=== PATIENT | male | born 1965 | race Caucasian/White ===

== ENCOUNTER 2018-05-26 08:26 | Emergency (ER) | payer OTHER ==
[~2018-05-26] VITALS: Ht 185.4 cm; Wt 122.5 kg
[2018-05-26] MEDS ORDERED: HYDROCHLOROTHIA25 M2 PO (08:55)
[2018-05-26] MEDS ORDERED: SYNTHROID100 MC1 PO (08:55)
[2018-05-26] MEDS ORDERED: SYNTHROID200 MCG PO (08:55)
[2018-05-26] MEDS ORDERED: ZOCOR20 MG PO (08:55)
[2018-05-26] MEDS ORDERED: SEROPHENE50 MG PO (08:55)
[2018-05-26] MEDS ORDERED: GLEEVEC400 MG PO (08:55)
[2018-05-26] MEDS ORDERED: NEXIUM40 MG PO (08:55)
[2018-05-26] MEDS ORDERED: ASPIRIN325 PO (08:56)
[2018-05-26] MEDS ORDERED: PROPECIA1 MG PO (08:56)
[2018-05-26] MEDS ORDERED: FISH OIL + D31 EACH PO (08:56)
[2018-05-26] MEDS ORDERED: CELEXA20 MG PO (08:56)
[2018-05-26] MEDS ORDERED: VITAMIN D3400 UNIT PO (08:56)
[2018-05-26] MEDS ORDERED: CIALIS20 MG PO (08:57)
[2018-05-26 09:02] LABS: ABSOLUTE NEUTROPHILS 1.9 thou/uL (1.4-8.2); HEMATOCRIT 41.7 % (42.0-52.0); LYMPHOCYTES 37.1 % (24.0-44.0); MCH 31.9 pg (26.0-34.0); MCHC 33.5 g/dL (28.0-37.0); MCV 95.3 fL (80.0-100.0); MONOCYTES 10.3 % (1.0-8.0); PLATELET COUNT 171 thou/uL (150-400); POLYS 50.6 % (36.0-66.0); RBC 4.38 mil/uL (4.50-6.00); RDW 15.2 % (10.5-14.5); WBC 3.9 thou/uL (4.0-11.0)
[2018-05-26 09:06] LABS: ANION GAP 9 mmol/L (7-16); BUN 16 mg/dL (7-18); CHLORIDE 102 mmol/L (98-107); CO2 30 mmol/L (21-32); CREATININE 1.4 mg/dL (0.7-1.3); GLUCOSE 110 mg/dL (74-106); SODIUM 141 mmol/L (136-145)
--- NOTE | 2018-05-26 09:14 | EKG ---
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 : 1965 Requested By: Brian Villalobos Order Number: [id number] MD: Antonio Gomez Measurements Intervals [place] Rate: 47 P: 16 PA: 185 QRS: 8 QRSD: 105 T: 42 QT: 514 QTc: 455 Interpretive Statements Sinus bradycardia Otherwise normal tracing No previous ECG available for comparison Electronically Signed On 05-26-2018 9:14:15 CDT by Antonio Gomez [email or web address] ��������������������������������������������� <ELECTRONICALLY SIGNED> ���������������������������������������� By: Antonio Gomez MD, [facility] ��������������������������������������������� 05/26/18 0914 0850 0850 Antonio Gomez MD, FACC /EPI
[2018-05-26 09:15] LABS: TROPONIN-I <0.06 ng/mL (<0.06)
[2018-05-26 10:32] VITALS: BP 118/64
== END 2018-05-26 10:33 | disposition home or self-care (01) ==
LOC: ER 08:26
PROVIDERS: Emergency Medicine
DX: E87.6 Hypokalemia (principal); R42 Dizziness and giddiness; R00.1 Bradycardia, unspecified; Z88.1 Allergy status to other antibiotic agents; Z88.2 Allergy status to sulfonamides

== ENCOUNTER 2018-06-30 08:46 | Inpatient (IN) | payer OTHER ==
[~2018-06-30] VITALS: Ht 182.9 cm; Wt 136.1 kg
[~2018-06-30 08:46] MED LIST: ASPIRIN325 PO; CELEXA20 MG PO; CIALIS20 MG PO; FISH OIL + D31 EACH PO; GLEEVEC400 MG PO; HYDROCHLOROTHIA25 M2 PO; NEXIUM40 MG PO; PROPECIA1 MG PO; SEROPHENE50 MG PO; SYNTHROID100 MC1 PO; SYNTHROID200 MCG PO; VITAMIN D3400 UNIT PO; ZOCOR20 MG PO
[2018-06-30 09:58] VITALS: BP 110/69
--- NOTE | 2018-06-30 14:06 | 2DMMODE ---
[facility] [address] [place] [address] 2 D/M-MODE ECHOCARDIOGRAM Name: SIVA CHERY Room #: 205-P ADM IN M.R.#: [id number] ������������� Admission: 06/30/18 ������������� Attend Phys: Eleuterio George, Discharge: ��� ������������� ��� Date of : 69 Date of Service: 06/30/18 1405 �� Report #: [id number] �������� ��������������������������������������������[id number] THIS REPORT FOR: //name// APPROVED REPORT Study performed: 06/30/2018 12:43:16 EXAM: Comprehensive 2D, Doppler, and color-flow Echocardiogram Patient Location: Echo lab Room #: 205 Status: routine BSA: 2.53 HR: 54 bpm BP: 110/69 mmHg Rhythm: NSR Other Information Study Quality: Adequate Indications Bradycardia Near syncope 2D Dimensions RVDd: 43.63 mm IVSd: 11.15 (7-11mm) LVOT Diam: 23.98 (18-24mm) LVDd: 55.08 mm PWd: 10.44 (7-11mm) Ascending Ao: 36.28 (22-36mm) LVDs: 38.63 (25-40mm) Aortic Root: 40.99 mm Volumes Left Atrial Volume (Systole) Single Plane 4CH: 70.26 mL Single Plane 2CH: 63.02 mL LA ESV Index: 28.00 mL/m2 Aortic Valve AoV Peak Paulino.: 1.70 m/s AO Peak Gr.: 11.62 mmHg LVOT Max P.24 mmHg LVOT Max V: 1.35 m/s VIKA Vmax: 3.56 cm2 Mitral Valve E/A Ratio: 1.3 MV Decel. Time: 236.89 ms [facility] [address] [place] [address] 2 D/M-MODE ECHOCARDIOGRAM Name: SIVA CHERY Room #: 205-P [facility] IN [facility].#: [id number] ������������� Admission: 06/30/18 ������������� Attend Phys: Eleuterio George, Discharge: ��� ������������� ��� Date of : 69 Date of Service: 06/30/18 1405 �� Report #: [id number] �������� ��������������������������������������������[id number] MV E Max Paulino.: 0.82 m/s MV A Paulino.: 0.61 m/s MV PHT: 68.70 ms IVRT: 73.82 ms Pulmonary Valve PV Peak Paulino.: 1.19 m/s PV Peak Gr.: 5.63 mmHg Pulmonary Vein P Vein S: 0.52 m/s P Vein D: 0.42 m/s P Vein S/D Ratio: 1.24 Tricuspid Valve TR Peak Paulino.: 2.43 m/s RAP Estimate: 5.00 mmHg TR Peak Gr.: 23.70 mmHg PA Pressure: 29.00 mmHg Left Ventricle The left ventricle is normal size. There is normal LV segmental wall motion. There is normal left ventricular wall thickness. Left ventricular systolic function is normal. LVEF is 55-60%. Right Ventricle The right ventricle is normal size. The right ventricular systolic function is normal. Atria The left atrium size is normal. The right atrium size is normal. Aortic Valve The aortic valve is normal in structure. No aortic regurgitation is present. There is no aortic valvular stenosis. Mitral Valve The mitral valve is normal in structure. Mild mitral regurgitation. No evidence of mitral valve stenosis. Tricuspid Valve The tricuspid valve is normal in structure. Trace to mild tricuspid regurgitation. Estimated PAP is 30mmHg. Pulmonic Valve The pulmonary valve is normal in structure. Trace pulmonic regurgitation. [facility] [address] [place] [address] 2 D/M-MODE ECHOCARDIOGRAM Name: SIVA CHERY Room #: 205-P ADM IN M.R.#: [id number] ������������� Admission: 06/30/18 ������������� Attend Phys: Eleuterio George, Discharge: ��� ������������� ��� Date of : [birth year] Date of Service: 06/30/18 1405 �� Report #: [id number] �������� ��������������������������������������������[id number] [place] Aortic root is mildly dilated at 4.0cm. The ascending aorta is normal in size. IVC is normal in size and collapses >50% with inspiration. Pericardium There is no pericardial effusion. <Conclusion> The left ventricle is normal size. There is normal left ventricular wall thickness. Left ventricular systolic function is normal. The right ventricle is normal size. The left atrium size is normal. The right atrium size is normal. The aortic valve is normal in structure. Mild mitral regurgitation. Trace to mild tricuspid regurgitation. Estimated PAP is 30mmHg. ��������������������������������������������� <ELECTRONICALLY SIGNED> ���������������������������������������� By: Trip Aaron MD ��������������������������������������������� 06/30/18 1405 04 140 Trip Aaron MD /INF
--- NOTE | 2018-06-30 14:18 | EXE ---
[facility] [address] [place] [address] STRESS ECHOCARDIOGRAM Name: SIVA CHERY Room #: 205-P ADM IN M.R.#: [id number] ������������� Admission: 06/30/18 ������������� Attend Phys: Eleuterio George, Discharge: ��� ������������� ��� Date of : 69 Date of Service: 06/30/18 1417 �� Report #: [id number] �������� ��������������������������������������������[id number] THIS REPORT FOR: //name// APPROVED REPORT Study performed: 06/30/2018 13:13:10 Exam: Stress Echocardiogram Indication: Near syncope, bradycardia Patient Location: Echo lab Stress Nurse: Marley Huff RN Room #: 205 Status: routine Ht: 6 ft 0 in HR: 57 bpm BP: 110/69 mmHg Rhythm: Sinus Medical History Allergies: Listed on worksheet Cardiac Risk Factors: FHX of CAD, obesity Procedure The patient underwent an Exercise Stress Test using the Modified Myron Protocol. Blood pressure, heart rate, and EKG were monitored. An Echocardiogram was performed by roadway technician in four stages in quad fashion. At peak stress, four selected images were obtained and placed side by side with resting images for comparison. Stress Test Details Stress Test: Exercise stress testing was performed using a modified Myron protocol. HR Resting HR: 62 bpm Max Heart Rate (APMHR): 169 bpm Max HR Achieved: 131 bpm Target HR (85% APMHR): 143 bpm % of APMHR: 77 Recovery HR: 77 bpm HR response to stress: Normal HR response to stress BP Resting BP: 110/69 mmHg Max BP: 160/75 mmHg Recovery BP: 124/70 mmHg BP response to stress: Normal blood pressure response to [facility] [address] [place] [address] STRESS ECHOCARDIOGRAM Name: SIVA CHERY Room #: 205-P [facility] IN ..#: [id number] ������������� Admission: 06/30/18 ������������� Attend Phys: Eleuterio George, Discharge: ��� ������������� ��� Date of : 69 Date of Service: 06/30/18 1417 �� Report #: [id number] �������� ��������������������������������������������[id number] stress. ECG Resting ECG: Sinus Rhythm Stress ECG: Sinus Rhythm ST Change: Non-ischemic Clinical Reason for Termination: Leg fatigue/Dyspnea Exercise duration: 7 min sec Highest Stage Achieved: Stage 2: 2.5 mph at 12% grade. Exercise capacity: 7.6 METs Held stage 2 incline till patient requested to stop. Pre-Stress Echo The resting Echocardiogram showed normal left ventricular contractility with an estimated Ejection Fraction of about 55-60%. Normal wall motion in all segments on baseline images. Post-Stress Echo The stress Echocardiogram showed normal left ventricular contractility with an estimated Ejection Fraction of about >70%. Normal augmentation of wall motion in all segments on post stress images. Clinical No clinical or ECG evidence for ischemia. Conclusion Clinical Response: Non-ischemic Exercise Capacity: Below Average Stress ECG Response: Non-ischemic Stress Echo Images: Non-ischemic This is a suboptimal study as the target heart rate was not able to be achieved. Normal chronotropic competence with exercise. Other Information Study Quality: Adequate <Conclusion> This is a suboptimal study as the target heart rate was not able to [facility] [address] [place] [address] STRESS ECHOCARDIOGRAM Name: SIVA CHERY Room #: 205-P [facility] IN M.R.#: [id number] ������������� Admission: 06/30/18 ������������� Attend Phys: Eleuterio George, Discharge: ��� ������������� ��� Date of : 69 Date of Service: 06/30/181416 �� Report #: [id number] �������� ��������������������������������������������[id number] be achieved. Normal chronotropic competence with exercise. ��������������������������������������������� <ELECTRONICALLY SIGNED> ���������������������������������������� By: Trip Aaron MD ��������������������������������������������� 06/30/187 16 16 Trip Aaron MD /INF
[2018-06-30 15:25] VITALS: BP 92/44
--- NOTE | 2018-06-30 17:32 | NUR ---
ASSUMED CARE OF PT AT 1100. PT ADMITTED FOR SYNCOPE AND CHEST TIGHTNESS FROM [facility]. PT DID NOT REPORT CHEST PAIN ON ADMISSION. PT IS ALERT AND ORIENTED X4 AND UP AD EVERT. PT WENT FOR CARDIAC STRESS TEST AND RESULTS SHOWED NO SIGNS OF ISCHEMIA. PT RETURNED AND SLEPT FOR SHIFT WHILE ON CPAP. O2 WAS MAINTAINED AT 100 WITH NO DIFFICULTY BREATHING. PT REPORTED A HEADACHE PAIN WITH A RATING OF 1 AND ACETAMINOPHEN WAS GIVEN PRESCRIBED. PT MAINTAINED SINUS BRADYCARDIA THROUGHOUT SHIFT. WILL CONTINUE TO MONITOR PT.
--- NOTE | 2018-06-30 18:13 | NUR ---
I have reviewed the documentation by FANNIE HADDAD from 1029 to 1812 and I concur with it.
[2018-06-30 19:55] VITALS: BP 103/55; BP 142/86
[2018-07-01 00:37] VITALS: BP 104/65
[2018-07-01 04:25] LABS: ABSOLUTE NEUTROPHILS 3.8 thou/uL (1.4-8.2); BASOPHILS 0.7 % (0.0-2.0); EOSINOPHILS 1.3 % (0.0-3.0); HEMATOCRIT 37.6 % (42.0-52.0); HEMOGLOBIN 12.5 gm/dL (14.0-18.0); LYMPHOCYTES 17.8 % (24.0-44.0); MCH 32.2 pg (26.0-34.0); MCHC 33.4 g/dL (28.0-37.0); MCV 96.5 fL (80.0-100.0); MONOCYTES 9.1 % (1.0-8.0); PLATELET COUNT 161 thou/uL (150-400); POLYS 71.1 % (36.0-66.0); RDW 15.1 % (10.5-14.5); WBC 5.3 thou/uL (4.0-11.0)
--- NOTE | 2018-07-01 04:31 | NUR ---
ASSUMED PT CARE AT 1900 WITH NO SIGN OF DISTRESS NOTED IN PT. PT IS ALERT AND ORIENTED AND PT IS SITTING AT IN THE CHAIR. SCHEDULED MEDS ADMINISTERED TO PT. PT IS STABLE. VITAL SIGNS STABLE. PT WEARS CPAP AT NIGHTTIME. DENIES ANY FURTHER NEEDS AT THIS TIME.
[2018-07-01 04:38] LABS: CALCIUM 7.6 mg/dL (8.5-10.1); CREATININE 1.1 mg/dL (0.7-1.3); MAGNESIUM 1.8 mg/dL (1.8-2.4); POTASSIUM 3.1 mmol/L (3.5-5.1)
[2018-07-01 04:50] VITALS: BP 96/55
[2018-07-01 08:00] VITALS: BP 126/62
[2018-07-01 09:23] VITALS: BP 126/62
[2018-07-01 09:55] VITALS: BP 126/62
--- NOTE | 2018-07-01 10:11 | NUR ---
ASSUMED CARE OF PT AT SHIFT CHANGE. ASSESSMENT CHARTED. MEDS GIVEN PER MAY. PT ALERT AND ORIENTED, VSS, NO C/O PAIN, DENIES CHEST PAIN. PT SB ON MONITOR IN 50'S. DENIES DIZZINESS, SOB. O2 SATS WNL ON ROOM AIR. NO S/SX OF CARDIAC OR RESP DISTRESS NOTED. PT DC'D IV EARLIER IN AM AND STATED HE FEELS READY TO GO HOME. ROUNDED ON PT AND DC ORDERS PUT IN, ACKNOWLEDGED AND IMPLEMENTED. DC PAPERWORK DISCUSSED WITH PT, COMMUNICATES UNDERSTANDING. TELE REMOVED, PT DC'D UNIT AT APPROX 1010 WITH ALL BELONGINGS.
[2018-07-01 10:14] VITALS: BP 126/62
== END 2018-07-01 10:10 | disposition home or self-care (01) | DRG 312 ==
LOC: 2N 08:46
PROVIDERS: Nurse Practitioner; ADMIT Internal Medicine
DX: R55 Syncope and collapse (principal); N17.9 Acute kidney failure, unspecified; C92.10 Chronic myeloid leukemia, BCR/ABL-positive, not having achieved remission; R00.1 Bradycardia, unspecified; G47.33 Obstructive sleep apnea (adult) (pediatric); F41.9 Anxiety disorder, unspecified; F32.9 Major depressive disorder, single episode, unspecified; I10 Essential (primary) hypertension; E78.5 Hyperlipidemia, unspecified; E87.6 Hypokalemia; K21.9 Gastro-esophageal reflux disease without esophagitis; E03.9 Hypothyroidism, unspecified; Z87.891 Personal history of nicotine dependence; Z88.1 Allergy status to other antibiotic agents; Z88.2 Allergy status to sulfonamides; Z95.820 Peripheral vascular angioplasty status with implants and grafts; Z82.49 Family history of ischemic heart disease and other diseases of the circulatory system; Z85.850 Personal history of malignant neoplasm of thyroid; Z86.718 Personal history of other venous thrombosis and embolism
CPT/HCPCS: 10081

== ENCOUNTER → 2018-08-19 | Outpatient (CLI) | payer OTHER | LOC: RAD 15:52 | DX: M19.071 Primary osteoarthritis, right ankle and foot (principal) ==

== ENCOUNTER → 2018-12-28 | Outpatient (CLI) | payer OTHER | LOC: MRI 10:35 | DX: M51.26 Other intervertebral disc displacement, lumbar region (principal); M47.816 Spondylosis without myelopathy or radiculopathy, lumbar region; M48.062 Spinal stenosis, lumbar region with neurogenic claudication; L05.91 Pilonidal cyst without abscess; Z88.8 Allergy status to other drugs, medicaments and biological substances; Z88.2 Allergy status to sulfonamides ==

== ENCOUNTER → 2019-01-11 | Outpatient (CLI) | payer OTHER | LOC: MRI 12:39 | DX: M94.261 Chondromalacia, right knee (principal); M79.2 Neuralgia and neuritis, unspecified ==

== ENCOUNTER → 2019-02-10 | Outpatient (CLI) | payer OTHER ==
[~2019-02-10] VITALS: Ht 182.9 cm; Wt 134.3 kg
[2019-02-10 12:51] VITALS: BP 136/81
--- NOTE | 2019-02-10 13:07 | NUR ---
Pain Clinic Assessment: 1. History of Osteoarthritis: Not Applicable History of Rheumatoid Arthritis: Not Applicable 2. Height: 6 ft. 0 in. 182.9 cm. Weight: 296.0 lb. oz. 134.265 kg. Patient's BMI: 40.1 3. Vital Signs: BP: 136/81 Pulse: 51 Resp: 16 Temp: 02 Sat: 97 ECG Mon: 4. Pain Intensity: 1 5. Fall Risk: Dizziness: N Needs help standing or walking: N Fallen in the last 3 months: N Fall risk comments: 6. Patient on Blood Thinner: None 7. History of Hypertension: N 8. Opioid Therapy greater than 6 weeks: N Opiate Contract Signed: 9. Risk Assessment Tool Provided: LOW RISK 0/0 10. Functional Assessment Tool: 11. Recreational Drug Use: Never Drug Type: Tobacco Use: Never Smoker Tobacco Type: Amount or Packs/day: How Many Years: Alcohol Use: No Frequency: Quant:
--- NOTE | 2019-02-16 12:56 | HPC ---
[facility] [place] [place] [address] PAIN MANAGEMENT CONSULTATION Name: SIVA CHERY Room #: REG PHYLICIA Walden#: [id number] Admission: 02/10/19 Attend Phys: Alex Saleh DO Discharge: Date of : 69 Report #: [id number] THIS REPORT FOR: //name// CC: Alex Smith MD DATE OF SERVICE: 02/10/2019 CHIEF COMPLAINT: Axial low back pain, right distal leg pain. HISTORY OF PRESENT ILLNESS: As you know, the patient is a 53-year-old male with longstanding history of low back pain and right distal leg pain. The patient reports pain began about 6 months ago. Denies any specific injury or trauma that may have led to symptom development. He has sought evaluation through his primary care physician who had the patient undergo MRI of the lumbar spine, which showed mild spondylosis without lateralizing features and some severe hypertrophic changes at the L4-L5 level and to a lesser degree at the L5-S1 level. He has also undergone EMG of the right lower extremity, which shows a right peroneal entrapment across the fibular head. 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 Due to ongoing pain issues and lack of improvement with conservative treatment, the patient was referred to our clinic to discuss options for therapy. The patient indicates today pain is rhythmic. He describes the pain as burning and shooting. He places current pain score 1/10, daily average at 1/10, worst pain has been is 10/10. Nothing makes the pain better and nothing makes the pain any worse. He has been referred to our service to discuss treatment options. PAST MEDICAL HISTORY: 1. Thyroid disease. 2. Degenerative joint disease. 3. Chronic myeloid leukemia. 4. Thyroid cancer. PAST SURGICAL HISTORY: 1. Thyroid surgery. 2. Repair of an aneurysm. SOCIAL HISTORY: The patient denies tobacco, alcohol, IV or illicit drug use. He is employed as a [employer] tech. He is working, not receiving workmen's compensation nor is he trying to obtain disability benefits. He is unaccompanied at today's visit. He is not in litigation in regards to pain. REVIEW OF SYSTEMS: Positive for thyroid disease, heat and cold intolerance, [facility] [address] [place] [address] PAIN MANAGEMENT CONSULTATION Name: SIVA CHERY Room #: REG [facility].#: [id number] Admission: 02/10/19 Attend Phys: Alex Saleh DO Discharge: Date of : 69 Report #: [id number] dyslipidemia, erectile dysfunction, right distal leg pain secondary to a peroneal neuropathy and chronic low back pain. All other review of systems negative per 12-point review of systems other than those listed in history of present illness. Pain impact score of 3/70 indicating mild interference of daily activities secondary to pain. ALLERGIES: SULFA and AMOXICILLIN. CURRENT MEDICATIONS: Simvastatin 20 mg per day, levothyroxine 200 mcg per day, Gleevec 400 mg once a day, Propecia 1 mg once a day, omega-3 fish oil 1 tab per day, Cialis 20 mg p.r.n. IMAGING: MRI lumbar spine obtained on 12/28/2018 shows L1-L2 unremarkable, L2-L3 with moderate hypertrophic posterior facet degenerative changes and ligamentum flavum hypertrophy. There is noted no central canal neural foraminal stenosis, L3-L4, generalized disk bulge with moderate hypertrophic facet arthropathy. No central canal neural foraminal stenosis. L4-L5, severe hypertrophic posterior facet degenerative changes and ligamentum flavum hypertrophy. No significant central canal stenosis. There is generalized disk bulge, slightly more eccentric to the left with minimal left neural foraminal narrowing. Negative right L5-S1, generalized disk bulge, mild posterior degenerative changes, ligamentum flavum hypertrophy, no central canal stenosis, mild bilateral neural foraminal stenosis. EMG of the right lower extremity performed on 12/17/2018 shows right peroneal entrapment across the fibular head, sensory axonal neuropathy. PHYSICAL EXAMINATION: VITAL SIGNS: Blood pressure 136/81, pulse 51, respiratory rate 16 and unlabored. The patient is 97% on room air, height 6 feet tall, weight 296 pounds and BMI calculated 40.1. GENERAL: Well-developed, well-nourished, well-hydrated, morbidly obese 53-year-old male. He appears his stated age. He is in no acute distress, awake, alert and oriented x 3. Current pain score 1/10. HEENT: Normocephalic, atraumatic. Pupils equal, round, reactive to light. Extraocular muscles are intact. NEUROLOGIC: Speech is fluent. The patient deemed a good historian. LUNGS: Clear, no wheeze, rhonchi or rales. CARDIOVASCULAR: Regular. No appreciable gallop, no rub. ABDOMEN: Soft, obese, normoactive bowel sounds. EXTREMITIES: Show no clubbing, no cyanosis, and no edema. MUSCULOSKELETAL: Lower extremity strength is equal and symmetrical 5/5. Slight giveaway strength noted with dorsiflexion on the right foot when compared to left, this is due to pain generated along the peroneal nerve. There is also [facility] [address] [place] [address] PAIN MANAGEMENT CONSULTATION Name: SIVA CHERY Room #: REG CLShani Walden#: [id number] Admission: 02/10/19 Attend Phys: Alex Saleh DO Discharge: Date of : 69 Report #: [id number] palpatory tenderness at the fibular head on the right, negative left. Seated straight leg raising negative. Supine straight leg raising negative. Saw's test is negative. Modified Gaenslen's positive for axial low back pain. Ankle clonus negative. Babinski is negative. Gait is antalgic favoring right lower extremity over left due to numbness radiating along the peroneal nerve on the right. Lumbar provocation is met with increasing pain. ASSESSMENT: 1. Right peroneal neuropathy. 2. Peripheral neuropathy. 3. Lumbosacral spondylosis without radiculopathy. 4. Facet arthropathy of the lumbar spine. 5. Obesity. 6. Chronic intractable pain. PLAN: 1. Based on today's physical exam and history the patient has provided, the description the patient uses in regards to pain as well as the findings of her recent EMG showing right peroneal neuropathy, beginning at the fibular head, likely source of the patient's distal right leg pain is due to this neuropathy. We discussed that there are options for treatment for these neuropathies. Typically, they are more conservative in nature. We discussed the possibility of utilizing topical agents to apply directly over the fibular head and the source of the entrapment. We also discussed the possibility of making changes from a standpoint of adding orthotics to the patient in hopes of adjusting the gait, the patient has a potentially improving the peroneal nerve entrapment at the fibular head. We also discussed surgical decompression. After reviewing those risks and benefits, the patient chose to make adjustments in medication therapy and to look towards the possible orthotics. As for the axial back pain, his symptoms are related more to facet arthropathy. We discussed the options for treatment for facet arthropathy with the patient today. These would include physical therapy, stretching exercise, core strengthening and a concerted effort at weight loss. We discussed medication management utilizing nonsteroidal anti-inflammatories for baseline pain control. We discussed intra-articular facet injections and medial branch radiofrequency lesioning to address the nerves of the lumbar spine. After reviewing the risks and benefits of all proposed treatment options, the patient chose to remain with conservative treatment, the following adjustments were made. The patient states that he is not as concerning about his axial back pain as much as he is about the peroneal nerve entrapment and neuropathy he is experiencing in the right lower extremity. We discussed topical agents with the patient today. We have written for a topical agent to be prepared to apply to the fibular head on a t.i.d. basis. The compounded cream will contain gabapentin, lidocaine, ketamine, baclofen as it is compounded agents. A prescription was provided to the patient to fill this at the compounding organization at [facility] [place] [address] PAIN MANAGEMENT CONSULTATION Name: SIVA CHERY Room #: REG PHYLICIA Walden#: [id number] Admission: 02/10/19 Attend Phys: Alex Saleh DO Discharge: Date of : 69 Report #: [id number] area. The patient was given this prescription today. Advised to fill and utilize as directed. He will watch for side effects mainly topical irritation at the site of an application. 2. The patient and I did discuss the possible use of orthotics to change the angles of gait, improving the patient's overall pain and potentially reducing the entrapment at the right fibular head of the peroneal nerve. The patient is amenable. He is going to try [id number]-[id number] orthotics initially if these are successful at alleviating symptoms and he wishes to move to a more permanent set of orthotics designed specifically for him. We would be more than willing to refer the patient off to Podiatry for sizing and adjustments. The patient will contact our clinic once he has trialled [id number]-[id number] orthotics if they are successful and he wants more permanent forms will provide the referral for Podiatry. 3. In regard to the patient's axial back pain, we did discuss the interventional treatments and medication changes above. At this point, the patient states he is not concerned as much of his back as he has with the nerve issues on the right side. 4. We wish to thank Dr. Smith for the opportunity to see the patient in consultation. We will be returning his care to your services for continuation of treatment. If further treatment is necessary, I would recommend an orthopedic consultation as they may have to perform a surgical decompression of the peroneal nerve at the fibular head if more conservative treatment options are not effective. We wish to thank you again for the opportunity to see the patient in consultation. <ELECTRONICALLY SIGNED> By: Alex Saleh DO 02/16/19 1256 0807 0842 Alex Saleh DO /nt
== END ==
LOC: PAIN 07:09
DX: M47.817 Spondylosis without myelopathy or radiculopathy, lumbosacral region (principal); M12.88 Other specific arthropathies, not elsewhere classified, other specified site; G89.4 Chronic pain syndrome; G62.9 Polyneuropathy, unspecified

== ENCOUNTER → 2019-06-15 | Outpatient (CLI) | payer OTHER | LOC: SJCVCIMAG 12:32 | PROVIDERS: ATTEND Family Medicine | DX: I73.9 Peripheral vascular disease, unspecified (principal); Z95.820 Peripheral vascular angioplasty status with implants and grafts ==

== ENCOUNTER → 2019-08-06 | Outpatient (CLI) | payer OTHER | LOC: CAT 07:44 | DX: Z13.6 Encounter for screening for cardiovascular disorders (principal); E78.00 Pure hypercholesterolemia, unspecified; I25.10 Atherosclerotic heart disease of native coronary artery without angina pectoris ==

== ENCOUNTER → 2019-09-05 | Outpatient (CLI) | payer OTHER ==
[~2019-09-05] MED LIST changes: +NEXIUM 40 MG CA40 M1 PO
== END ==
LOC: CAT 07:19
PROVIDERS: ATTEND Nuclear Medicine Nuclear Cardiology
DX: R51 Headache (principal); Z86.79 Personal history of other diseases of the circulatory system

== ENCOUNTER → 2019-09-06 | Outpatient (CLI) | payer OTHER ==
[~2019-09-06] MED LIST changes: -NEXIUM 40 MG CA40 M1 PO
== END ==
LOC: CAT 09:38
PROVIDERS: ATTEND Nuclear Medicine Nuclear Cardiology
DX: Z13.6 Encounter for screening for cardiovascular disorders (principal); I70.0 Atherosclerosis of aorta; I70.8 Atherosclerosis of other arteries; Z86.79 Personal history of other diseases of the circulatory system

== ENCOUNTER → 2019-10-07 | Outpatient (CLI) | payer OTHER ==
[2019-10-07 14:43] LABS: BASOPHILS 1.1 % (0.0-2.0); EOSINOPHILS 2.4 % (0.0-3.0); HEMATOCRIT 39.5 % (42.0-52.0); HEMOGLOBIN 13.1 gm/dL (14.0-18.0); MCH 33.5 pg (26.0-34.0); MCHC 33.3 g/dL (28.0-37.0); MCV 100.7 fL (80.0-100.0); PLATELET COUNT 198 thou/uL (150-400); POLYS 57.5 % (36.0-66.0); RBC 3.92 mil/uL (4.50-6.00); RDW 15.6 % (10.5-14.5); WBC 5.2 thou/uL (4.0-11.0)
[2019-10-07 14:59] LABS: ALBUMIN 3.9 g/dL (3.4-5.0); CREATININE 1.2 mg/dL (0.7-1.3); POTASSIUM 4.6 mmol/L (3.5-5.1); TOTAL BILIRUBIN 0.6 mg/dL (0.2-1.0); TOTAL PROTEIN 6.7 g/dL (6.4-8.2)
== END ==
LOC: LAB 14:02 → LABMALL 14:02
PROVIDERS: ATTEND Internal Medicine Hematology
DX: C92.11 Chronic myeloid leukemia, BCR/ABL-positive, in remission (principal)

== ENCOUNTER → 2019-10-18 | Outpatient (CLI) | payer OTHER | LOC: SJCVCIMAG 09:31 | PROVIDERS: ATTEND Internal Medicine Cardiovascular Disease | DX: I49.1 Atrial premature depolarization (principal); Z87.891 Personal history of nicotine dependence ==

== ENCOUNTER → 2019-10-18 | Outpatient (CLI) | payer OTHER | LOC: LAB 13:44 | PROVIDERS: ATTEND Internal Medicine Pulmonary Disease | DX: Z01.812 Encounter for preprocedural laboratory examination (principal); Z11.59 Encounter for screening for other viral diseases ==

== ENCOUNTER → 2019-10-22 | Outpatient (CLI) | payer OTHER ==
[~2019-10-22] MED LIST changes: +NEXIUM 40 MG CA40 M1 PO
--- NOTE | 2019-10-28 12:04 | SLE ---
[facility] [place] [address] POLYSOMNOGRAPHY STUDY Name: SIVA CHERY Room #: [id number] Admission: 10/22/19 Attend Phys: Júnior Grayson MD Discharge: Date of : 69 Report #: [id number] THIS REPORT FOR: //name// CC: Tr Grayson MD DATE OF SERVICE: 10/22/2019 SLEEP STUDY ATTENDING PHYSICIAN: Dr. Júnior Grasyon. The patient is a 54-year-old who weighs 280 pounds with a BMI of 38. The patient's Havre score was 4. The patient underwent diagnostic sleep study performed at [facility]. During the night study, the patient spent 411 minutes in bed and slept for 322 minutes with a sleep efficiency of 78%. Sleep latency was 6.8 minutes with a REM latency of 283 minutes. Sleep architecture showed increased stage 1 and stage 2 sleep, absent slow wave and reduced REM sleep, which was 6.3% of total sleep time. During the night of the study, the patient had 77 obstructive apneas, 1 mixed apnea and 2 central apneas. The patient had 90 hypopneas. The patient's AHI was 31.6 per hour. The patient's REM AHI was 17.6 per hour and a supine AHI of 42 per hour. EKG monitoring revealed an average heart rate of 50 beats per minute. No sustained arrhythmias observed. Occasional PVCs seen. No clinically significant PLMS seen. Nocturnal oximetry study revealed an average oxygen saturation of 94% with the lowest of 83%. Ten minutes were spent in oxygen saturation of less than 89%. The patient met the criteria for CPAP initiation, but it was late in the study. As a result, there was not enough time to initiate CPAP. IMPRESSION: 1. Severe obstructive sleep apnea at an AHI of 31.6 per hour. 2. No clinically significant periodic limb movements of sleep. 3. Mild nocturnal hypoxia secondary to obstructive sleep apnea. RECOMMENDATIONS: 1. The patient would benefit from treatment of sleep apnea with CPAP. This can [facility] [address] [place] [address] POLYSOMNOGRAPHY STUDY Name: SIVA CHERY Room #: REG [facility] Walden#: [id number] Admission: 10/22/19 Attend Phys: úJnior Grayson MD Discharge: Date of : 69 Report #: [id number] be done as an in-lab CPAP titration study versus home auto-titration. 2. Once the patient is optimally treated with CPAP, then followup in 4-6 weeks to assess compliance and to document clinical improvement. 3. Weight loss is strongly advised. 4. Avoid [employer] depressants. 5. Cautioned regarding driving until symptoms of sleep apnea resolve with the use of CPAP. <ELECTRONICALLY SIGNED> By: Leon May MD 10/28/19 1204 [id number] Leon May MD /nt
== END ==
LOC: SLEEPLAB 18:49
PROVIDERS: ATTEND Internal Medicine Pulmonary Disease
DX: G47.34 Idiopathic sleep related nonobstructive alveolar hypoventilation (principal)

== ENCOUNTER → 2019-10-25 | Outpatient (CLI) | payer OTHER | LOC: LAB 11:25 | PROVIDERS: ATTEND Student in an Organized Health Care Education/Training Program | DX: Z01.818 Encounter for other preprocedural examination (principal); Z11.59 Encounter for screening for other viral diseases ==

== ENCOUNTER → 2019-10-29 | Outpatient (CLI) | payer OTHER ==
[~2019-10-29] VITALS: Ht 182.9 cm; Wt 131.5 kg
--- NOTE | ~2019-10-29 | P ---
[facility] [place] [address] PROCEDURE REPORT Name: SIVA CHERY Room #: REG [facility] Walden#: [id number] Admission: 10/29/19 Attend Phys: Sonu Soni Discharge: Date of : 69 Report #: [id number] THIS REPORT FOR: cc: Tr Smith MD, Neal A. MD McElhinney, Christian C. MD ~ CC: Sonu Smith MD DATE OF SERVICE: 10/29/2019 PROCEDURE PERFORMED: Colonoscopy. HISTORY OF PRESENT ILLNESS: The patient is a 54-year-old male who presents today for routine screening colonoscopy. No family history of colon cancer. The patient denies any symptoms. DESCRIPTION OF PROCEDURE: The risks and benefits of the procedure were explained to the patient, those risks including but not limited to bleeding, perforation, the risk of sedation. He understood these risks and gave informed consent. Sedation was given using propofol per anesthesia. Next, a digital rectal exam was initially performed, which was normal. Next, using a standard Olympus colonoscope, the scope was placed in the patient's anus and advanced under direct vision to the cecum. The overall prep was excellent. The cecum and ileocecal valve were normal in appearance. The ascending, transverse, descending and sigmoid colon were all normal. The rectal mucosa was normal. On retroflexion, small nonbleeding internal hemorrhoids were noted. Scope was then withdrawn and the procedure terminated. The patient tolerated the procedure well. IMPRESSION: 1. Small internal hemorrhoids. 2. Otherwise, normal colonoscopy. RECOMMENDATIONS: Repeat colonoscopy in 10 years. Thank you for allowing me to participate in his care. By: [id number] [id number] Sonu Jimenes MD /nt
== END | disposition home or self-care (01) ==
LOC: GI 08:22
PROVIDERS: ATTEND Specialist
DX: Z12.11 Encounter for screening for malignant neoplasm of colon (principal); K64.8 Other hemorrhoids; E78.5 Hyperlipidemia, unspecified; G47.30 Sleep apnea, unspecified; Z87.891 Personal history of nicotine dependence; K21.9 Gastro-esophageal reflux disease without esophagitis; Z98.890 Other specified postprocedural states; Z79.899 Other long term (current) drug therapy; Z85.850 Personal history of malignant neoplasm of thyroid; Z88.2 Allergy status to sulfonamides; Z88.8 Allergy status to other drugs, medicaments and biological substances
CPT/HCPCS: 62110; 62900

== ENCOUNTER → 2020-06-26 | Outpatient (CLI) | payer OTHER ==
[2020-06-26 09:42] LABS: ABSOLUTE NEUTROPHILS 2.9 thou/uL (1.4-8.2); BASOPHILS 1.1 % (0.0-2.0); EOSINOPHILS 3.9 % (0.0-3.0); HEMATOCRIT 39.6 % (42.0-52.0); HEMOGLOBIN 13.3 gm/dL (14.0-18.0); LYMPHOCYTES 29.4 % (24.0-44.0); MCH 33.7 pg (26.0-34.0); MCHC 33.5 g/dL (28.0-37.0); MCV 100.7 fL (80.0-100.0); PLATELET COUNT 199 thou/uL (150-400); POLYS 57.6 % (36.0-66.0); RBC 3.94 mil/uL (4.50-6.00); RDW 13.8 % (10.5-14.5)
[2020-06-26 09:55] LABS: ALBUMIN 3.6 g/dL (3.4-5.0); CALCIUM 8.5 mg/dL (8.5-10.1); CREATININE 1.3 mg/dL (0.7-1.3); POTASSIUM 4.5 mmol/L (3.5-5.1); TOTAL BILIRUBIN 0.3 mg/dL (0.2-1.0); TOTAL PROTEIN 6.4 g/dL (6.4-8.2)
== END ==
LOC: LAB 08:24
PROVIDERS: ATTEND Internal Medicine Hematology
DX: C92.11 Chronic myeloid leukemia, BCR/ABL-positive, in remission (principal)

== ENCOUNTER 2020-08-15 21:03 | Emergency (ER) | payer OTHER ==
[~2020-08-15] VITALS: Ht 259.1 cm; Wt 136.1 kg
[2020-08-15] MEDS ORDERED: NAPROSYN500 MG PO (23:24)
[2020-08-15] MEDS ORDERED: NEURONTIN 300M300 M2 PO (23:24)
[2020-08-15 23:32] VITALS: BP 169/103
== END 2020-08-15 23:30 | disposition home or self-care (01) ==
LOC: ER 21:03
DX: M79.672 Pain in left foot (principal); K21.9 Gastro-esophageal reflux disease without esophagitis; E03.9 Hypothyroidism, unspecified; E78.5 Hyperlipidemia, unspecified; Z90.89 Acquired absence of other organs; Z88.1 Allergy status to other antibiotic agents; Z88.2 Allergy status to sulfonamides; Z79.899 Other long term (current) drug therapy

== ENCOUNTER → 2020-09-14 | Outpatient (CLI) | payer OTHER ==
[~2020-09-14] MED LIST changes: +NAPROSYN500 MG PO; +NEURONTIN 300M300 M2 PO
== END ==
LOC: ULTRA 15:48
PROVIDERS: ATTEND Nurse Practitioner
DX: R22.1 Localized swelling, mass and lump, neck (principal); Z85.850 Personal history of malignant neoplasm of thyroid

== ENCOUNTER → 2020-09-14 | Outpatient (CLI) | payer OTHER ==
[2020-09-14 08:47] LABS: BASOPHILS 1.1 % (0.0-2.0); EOSINOPHILS 3.5 % (0.0-3.0); HEMATOCRIT 42.9 % (42.0-52.0); HEMOGLOBIN 14.3 gm/dL (14.0-18.0); LYMPHOCYTES 25.3 % (24.0-44.0); MCH 33.4 pg (26.0-34.0); MCHC 33.3 g/dL (28.0-37.0); MCV 100.4 fL (80.0-100.0); MONOCYTES 8.6 % (1.0-8.0); PLATELET COUNT 222 thou/uL (150-400); POLYS 61.5 % (36.0-66.0); RBC 4.27 mil/uL (4.50-6.00); RDW 14.3 % (10.5-14.5); WBC 4.9 thou/uL (4.0-11.0)
[2020-09-14 09:12] LABS: ANION GAP 6 mmol/L (7-16); BUN 10 mg/dL (7-18); CHLORIDE 107 mmol/L (98-107); CHOLESTEROL 145 mg/dL (<200); CO2 30 mmol/L (21-32); CREATININE 1.2 mg/dL (0.7-1.3); GLUCOSE 95 mg/dL (74-106); HDL CHOLESTEROL 52 mg/dL (>40); LDL CHOLESTEROL 73 mg/dL (<100); POTASSIUM 4.1 mmol/L (3.5-5.1); SGOT 38 U/L (15-37); SGPT 60 U/L (30-65); SODIUM 143 mmol/L (136-145); TC:HDL 2.8 Ratio (Not establshd); TOTAL BILIRUBIN 0.7 mg/dL (0.2-1.0); TOTAL PROTEIN 7.2 g/dL (6.4-8.2); TRIGLYCERIDE 101 mg/dL (<150); VLDL 20 mg/dL (<40)
[2020-09-14 20:06] LABS: PSA 0.4 ng/mL (0.0-4.0); T4 (THYROXINE) 8.9 ug/dL (4.5-12.0); TESTOSTERONE* 649 ng/dL (264-916)
[2020-09-15 00:06] LABS: GLYCOHEMOGLOBIN (HGB A1C) 5.4 % (4.8-5.6)
== END ==
LOC: LAB 08:02
PROVIDERS: ATTEND Nurse Practitioner
DX: Z00.00 Encounter for general adult medical examination without abnormal findings (principal); C73 Malignant neoplasm of thyroid gland; E29.1 Testicular hypofunction

== ENCOUNTER → 2020-10-10 | Outpatient (CLI) | payer OTHER | LOC: MRI 09:55 | PROVIDERS: ATTEND Podiatrist Foot & Ankle Surgery | DX: S92.325D Nondisplaced fracture of second metatarsal bone, left foot, subsequent encounter for fracture with routine healing (principal); M19.072 Primary osteoarthritis, left ankle and foot; M93.272 Osteochondritis dissecans, left ankle and joints of left foot; M77.42 Metatarsalgia, left foot; X58.XXXD Exposure to other specified factors, subsequent encounter ==

== ENCOUNTER → 2020-12-21 | Outpatient (CLI) | payer OTHER ==
[2020-12-21 09:47] LABS: ABSOLUTE NEUTROPHILS 2.9 thou/uL (1.4-8.2); BASOPHILS 2.2 % (0.0-2.0); EOSINOPHILS 9.6 % (0.0-3.0); HEMATOCRIT 41.5 % (42.0-52.0); HEMOGLOBIN 13.6 gm/dL (14.0-18.0); LYMPHOCYTES 27.3 % (24.0-44.0); MCH 32.7 pg (26.0-34.0); MCHC 32.7 g/dL (28.0-37.0); MCV 99.8 fL (80.0-100.0); MONOCYTES 7.7 % (1.0-8.0); PLATELET COUNT 205 thou/uL (150-400); POLYS 53.2 % (36.0-66.0); RBC 4.16 mil/uL (4.50-6.00); RDW 14.5 % (10.5-14.5); WBC 5.4 thou/uL (4.0-11.0)
[2020-12-21 10:04] LABS: ALBUMIN 3.6 g/dL (3.4-5.0); CALCIUM 8.4 mg/dL (8.5-10.1); CREATININE 1.1 mg/dL (0.7-1.3); POTASSIUM 4.2 mmol/L (3.5-5.1); TOTAL BILIRUBIN 0.4 mg/dL (0.2-1.0); TOTAL PROTEIN 6.2 g/dL (6.4-8.2)
== END ==
LOC: LAB 09:08
PROVIDERS: ATTEND Internal Medicine Hematology
DX: C92.11 Chronic myeloid leukemia, BCR/ABL-positive, in remission (principal)

== ENCOUNTER → 2020-12-29 | Outpatient (CLI) | payer OTHER | LOC: MRI 16:32 | PROVIDERS: ATTEND Nurse Practitioner | DX: S83.242A Other tear of medial meniscus, current injury, left knee, initial encounter (principal); M25.562 Pain in left knee; R60.0 Localized edema; M17.12 Unilateral primary osteoarthritis, left knee; M25.462 Effusion, left knee; X58.XXXA Exposure to other specified factors, initial encounter; Y93.89 Activity, other specified; Y92.89 Other specified places as the place of occurrence of the external cause; Y99.8 Other external cause status ==

== ENCOUNTER → 2021-04-27 | Outpatient (CLI) | payer OTHER ==
[2021-04-27 14:42] LABS: ABSOLUTE NEUTROPHILS 3.1 thou/uL (1.4-8.2); BASOPHILS 0.8 % (0.0-2.0); HEMATOCRIT 38.9 % (42.0-52.0); HEMOGLOBIN 13.2 gm/dL (14.0-18.0); LYMPHOCYTES 30.5 % (24.0-44.0); MCH 32.7 pg (26.0-34.0); MCV 96.2 fL (80.0-100.0); MONOCYTES 8.9 % (1.0-8.0); PLATELET COUNT 201 thou/uL (150-400); POLYS 57.8 % (36.0-66.0); RBC 4.04 mil/uL (4.50-6.00); RDW 14.6 % (10.5-14.5); WBC 5.4 thou/uL (4.0-11.0)
== END ==
LOC: LAB 14:01
PROVIDERS: ATTEND Nurse Practitioner
DX: C92.10 Chronic myeloid leukemia, BCR/ABL-positive, not having achieved remission (principal); E03.9 Hypothyroidism, unspecified